=== PATIENT | male | born 1940 | race Caucasian/White ===

== ENCOUNTER → 2017-05-24 | Outpatient (CLI) | payer MEDICARE, OTHER ==
[2017-05-24 09:47] LABS: BLOOD UREA NITROGEN 20 mg/dl (7-20)
[2017-05-24 09:47] LABS: CREATININE 1.07 mg/dl (0.61-1.24)
[2017-05-24] MEDS: SOD CHLORIDE 0.9% 100 ML (11:30)
[2017-05-24] MEDS: IOHEXOL 100 ML (11:30)
== END | disposition home or self-care (01) ==
LOC: LAB 08:56
DX: I73.9 Peripheral vascular disease, unspecified (principal)
CPT/HCPCS: 73700; 82565; 84520